=== PATIENT | female | born 1980 | race Caucasian/White ===

== ENCOUNTER 2017-03-21 12:07 | Emergency (ER) | payer BC ==
[2017-03-21 12:30] VITALS: BP 154/81
--- NOTE | 2017-03-21 12:42 | EDM.PDOC ---
ED HPI GI/ABDOMINAL - General Chief Complaint: Abdominal Pain Stated Complaint: LOWER ABDOMINAL PAIN Time Seen by Provider: 03/21/17 12:41 - History of Present Illness INITIAL COMMENTS - FREE TEXT/NARRATIVE: 36-year-old female presents emergency room with abdominal pain. This pain started early this morning progressively getting worse it is not associated with nausea vomiting. She cannot recall any activities he didn't make it worse however she does better with her hips flexed laying on her side in the position. The pain is mostly in the right lower caught it she describes it as going from her ovary to her bladder. It did not start out in her flank. She was seen for pain not this severe at the end of January this year. This pain did get better on its own the possibility of a kidney stone was brought up. The patient has had prior cholecystectomy she still has her appendix. - Related Data Allergies/ADRs: Allergies Allergy/AdvReac Type Severity Reaction Status Date / Time codeine Allergy Intermediate Burning Verified 03/21/17 12:26 latex Allergy Intermediate Blisters Verified 03/21/17 12:26 Home Meds: Home Meds Amitriptyline [Elavil] 50 mg PO BEDTIME PRN 08/08/16 [History] Ibuprofen [Advil] 600 mg PO Q6H PRN 10/09/16 [History] Ondansetron [Zofran ODT] 4 mg PO Q6H PRN #12 tab.dis 12/08/16 [Rx] Escitalopram [Lexapro] 10 mg PO DAILY 01/24/17 [History] LORazepam 0.5 mg PO ASDIRECTED PRN 01/24/17 [History] Hydrocodone/Acetaminophen [[place] 5-325 Tablet] 1 - 2 each PO Q6H PRN #15 tablet 03/21/17 [Rx] Ondansetron [Zofran ODT] 4 mg PO Q6H PRN #6 tab.dis 03/21/17 [Rx] Past Medical History - Past Health History Medical/Surgical History: Denies Medical/Surgical History HEENT History: Reports: Impaired vision Other HEENT History: wears eyeglasses Other Gastrointestinal History: diagnostic lap Genitourinary History: Reports: None Other OB/BYN History: pt states "not " Musculoskeletal History: Reports: Fracture Neurological History: Reports: Migraines Psychiatric History: Reports: Anxiety, Depression Hematologic History: Reports: Anemia - Past Surgical History GI Surgical History: Reports: Cholecystectomy Female Surgical History: Reports: section, Endometrial ablation, Tubal ligation Social & Family History - Tobacco Use Smoking Status *Q: Current Every Day Smoker Years of Tobacco use: 20 Packs/Tins Daily: 0.7 Used Tobacco, but Quit: No Second Hand Smoke Exposure: No - Caffeine Use Caffeine Use: Reports: Coffee - Alcohol Use Days Per Week of Alcohol Use: 5 Number of Drinks Per Day: 2 Total Drinks Per Week: 10 - Recreational Drug Use Recreational Drug Use: No ED ROS GENERAL - Review of Systems Review Of Systems: See Below Constitutional: Reports: no symptoms HEENT: Reports: No symptoms Respiratory: Reports: No Symptoms Cardiovascular: Reports: No symptoms GI/Abdominal: Reports: Abdominal pain. Denies: Constipation, Diarrhea : Reports: no symptoms Neurological: Reports: No Symptoms ED EXAM, GI/ABD - Physical Exam Exam: See Below Exam Limited By: No limitations General Appearance: alert, moderate distress (From the pain) Head: atraumatic, normocephalic Neck: normal inspection, supple, non-tender, full range of motion Respiratory/Chest: no respiratory distress, lungs clear, normal breath sounds Cardiovascular: regular rate, rhythm, no edema, no murmur GI/Abdominal: normal bowel sounds, soft, other (Vision significant right lower quadrant discomfort not worsened with palpation no rebound or guarding associated with this) Back Exam: normal inspection. No: CVA tenderness (L), CVA tenderness (R), paraspinal tenderness, vertebral tenderness Extremities: normal inspection, no pedal edema Course - Vital Signs Last Recorded V/S: Last Vital Signs Temp 36.7 C 03/21/17 12:23 Pulse 89 03/21/17 12:23 Resp 20 03/21/17 12:23 BP 154/81 H 03/21/17 12:23 Pulse Ox 97 03/21/17 12:23 - Orders/Labs/Meds Labs: Laboratory Tests 03/21/17 03/21/17 03/21/17 Range/Units 13:00 13:00 13:15 WBC 10.83 H (3.98-10.04) K/mm3 RBC 4.53 (3.98-5.22) M/mm3 Hgb 14.0 (11.2-15.7) gm/L Hct 40.3 (34.1-44.9) % MCV 89.0 (79.4-94.8) fl MCH 30.9 (25.6-32.2) pg MCHC 34.7 (32.2-35.5) g/dl RDW Std Deviation 40.1 (36.4-46.3) fL Plt Count 273 (182-369) K/mm3 MPV 10.6 (9.4-12.3) fl Neutrophils % (Manual) 70 H (40-60) % Band Neutrophils % 1 (0-10) % Lymphocytes % (Manual) 21 (20-40) % Atypical Lymphs % 0 % Monocytes % (Manual) 8 (2-10) % Eosinophils % (Manual) 0 L (0.7-5.8) % Basophils % (Manual) 0 L (0.1-1.2) Platelet Estimate Adequate RBC Morph Comment Normal Sodium (136-145) mEq/L Potassium (3.5-5.1) mEq/L Chloride (98-107) mEq/L Carbon Dioxide (21-32) mEq/L Anion Gap (5-15) BUN (7-18) mg/dL Creatinine (0.55-1.02) mg/dL Est Cr Clr Drug Dosing mL/min Estimated GFR (MDRD) (>60) mL/min BUN/Creatinine Ratio (14-18) Glucose (74-106) mg/dL Calcium (8.5-10.1) mg/dL Total Bilirubin (0.2-1.0) mg/dL AST (15-37) U/L ALT (14-59) U/L Alkaline Phosphatase (46-116) U/L Total Protein (6.4-8.2) g/dl Albumin (3.4-5.0) g/dl Globulin gm/dL Albumin/Globulin Ratio (1-2) Urine Color Yellow (Yellow) Urine Appearance Clear (Clear) Urine pH 7.0 (5.0-8.0) Ur Specific [place] 1.025 (1.005-1.030) Urine Protein Negative (Negative) Urine Glucose (UA) Negative (Negative) Urine Ketones Negative (Negative) Urine Occult Blood Negative (Negative) Urine Nitrite Negative (Negative) Urine Bilirubin Negative (Negative) Urine Urobilinogen 0.2 (0.2-1.0) Ur Leukocyte Esterase Negative (Negative) Urine RBC 0-5 (0-5) /hpf Urine WBC 0-5 (0-5) /hpf Ur Epithelial Cells Not Reportable Ur Squamous Epith Cells 5-10 H (0-5) /hpf Urine Bacteria Few (FEW) /hpf Urine Mucus Few (FEW) /hpf Urine HCG, Qual Negative (NEGATIVE) 03/21/17 Range/Units 13:43 WBC (3.98-10.04) K/mm3 RBC (3.98-5.22) M/mm3 Hgb (11.2-15.7) gm/L Hct (34.1-44.9) % MCV (79.4-94.8) fl MCH (25.6-32.2) pg MCHC (32.2-35.5) g/dl RDW Std Deviation (36.4-46.3) fL Plt Count (182-369) K/mm3 MPV (9.4-12.3) fl Neutrophils % (Manual) (40-60) % Band Neutrophils % (0-10) % Lymphocytes % (Manual) (20-40) % Atypical Lymphs % % Monocytes % (Manual) (2-10) % Eosinophils % (Manual) (0.7-5.8) % Basophils % (Manual) (0.1-1.2) Platelet Estimate RBC Morph Comment Sodium 139 (136-145) mEq/L Potassium 3.6 (3.5-5.1) mEq/L Chloride 106 (98-107) mEq/L Carbon Dioxide 25 (21-32) mEq/L Anion Gap 11.6 (5-15) BUN 10 (7-18) mg/dL Creatinine 0.7 (0.55-1.02) mg/dL Est Cr Clr Drug Dosing 99.01 mL/min Estimated GFR (MDRD) > 60 (>60) mL/min BUN/Creatinine Ratio 14.3 (14-18) Glucose 101 (74-106) mg/dL Calcium 8.6 (8.5-10.1) mg/dL Total Bilirubin 0.3 (0.2-1.0) mg/dL AST 14 L (15-37) U/L ALT 19 (14-59) U/L Alkaline Phosphatase 55 (46-116) U/L Total Protein 6.6 (6.4-8.2) g/dl Albumin 3.6 (3.4-5.0) g/dl Globulin 3.0 gm/dL Albumin/Globulin Ratio 1.2 (1-2) Urine Color (Yellow) Urine Appearance (Clear) Urine pH (5.0-8.0) Ur Specific [place] (1.005-1.030) Urine Protein (Negative) Urine Glucose (UA) (Negative) Urine Ketones (Negative) Urine Occult Blood (Negative) Urine Nitrite (Negative) Urine Bilirubin (Negative) Urine Urobilinogen (0.2-1.0) Ur Leukocyte Esterase (Negative) Urine RBC (0-5) /hpf Urine WBC (0-5) /hpf Ur Epithelial Cells Ur Squamous Epith Cells (0-5) /hpf Urine Bacteria (FEW) /hpf Urine Mucus (FEW) /hpf Urine HCG, Qual (NEGATIVE) Meds: Medications Discontinued Medications Generic Name Dose Route Start Last Admin Trade Name Freq PRN Reason Stop Dose Admin Hydrocodone Bitart/Acetaminophen 2 tab 03/21/17 15:48 03/21/17 16:15 [place] 325-5 Mg PO 03/21/17 15:49 2 tab ONETIME ONE Administration Fentanyl 100 mcg 03/21/17 12:55 Sublimaze IVPUSH 03/21/17 12:56 ONETIME ONE Fentanyl 50 mcg 03/21/17 12:57 03/21/17 13:12 Sublimaze IVPUSH 03/21/17 12:58 50 mcg ONETIME ONE Administration Hydromorphone HCl 0.5 mg 03/21/17 13:44 03/21/17 14:05 Dilaudid IVPUSH 03/21/17 13:45 0.5 mg ONETIME ONE Administration Lactated Ringer's 1,000 mls @ 999 mls/hr 03/21/17 12:55 03/21/17 13:11 Ringers, Lactated IV 03/21/17 13:55 999 mls/hr .BOLUS ONE Administration Ondansetron HCl 4 mg 03/21/17 12:57 03/21/17 13:11 Zofran IVPUSH 03/21/17 12:58 4 mg ONETIME ONE Administration - Re-Assessments/Exams Free Text/Narrative Re-Assessment/Exam: 03/21/17 13:47 Patient had brief relief from fentanyl we'll give a small dose of Dilaudid. Urinalysis is not suggestive hCG negative. CBC shows a slightly elevated white count. Chemistry still pending repeat exam unchanged we will check a CT stone protocol. 03/21/17 16:52 Laboratory evaluation entirely nondiagnostic CT is nondiagnostic for acute kidney stones the appendix was visualized no acute changes noted no other significant abnormalities noted. 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 This may warrant outpatient evaluation for HLA-B27 conditions. Departure - Departure Time of Disposition: 16:58 Disposition: Home, Self-Care 01 Clinical Impression: Abdominal pain of unknown cause Prescriptions: Hydrocodone/Acetaminophen [[place] 5-325 Tablet] 1 - 2 each PO Q6H PRN #15 tablet PRN Reason: Abdominal Pain Ondansetron [Zofran ODT] 4 mg PO Q6H PRN #6 tab.dis PRN Reason: Nausea/Vomiting Forms: ED Department Discharge Additional Instructions: Return to the emergency room with any questions or problems. Return in 12-24 hours if not improving, sooner if getting worse. Because your abdominal pain cannot clearly be identified. It is recommended that you obtain a gynecologic consultation to see if this could be contributing to her symptoms. Also consider further evaluation for potential rheumatologic conditions. I think this is unlikely but if no answers can be found it would be worth looking into.. You have been started on [place] this is a pain pill take one or 2 every 6 hours as needed for pain do not drive within 12 hours of using this medication were do not return to work within 12 hours using this medication. You been started on Zofran this is for nausea use as needed. Clear liquid diet for the next 12 hours then slowly advance as tolerated.
[2017-03-21] MEDS ORDERED: Lactated Ringers 1,000 ML IV ONE (12:55)
[2017-03-21] MEDS ORDERED: fentaNYL 100 MCG/2 ML SDV IVPUSH ONE ×2 (12:55→12:57)
[2017-03-21] MEDS ORDERED: Ondansetron 4 MG/2 ML SDV IVPUSH ONE (12:57)
[2017-03-21] MEDS ORDERED: HYDROmorphone 0.5 MG/0.5 ML Syringe IVPUSH ONE (13:44)
--- NOTE | 2017-03-21 14:47 | CT ---
CT abdomen and pelvis Technique: Multiple axial sections were obtained from above the dome of the diaphragm inferiorly through the pubic symphysis. Intravenous contrast was not utilized. Study has been performed as a ureteral stone protocol. Comparison: Previous CT abdomen and pelvis exam of 03/06/14. Findings: Right and left kidneys show no abnormal calcifications. No ureteral dilatation or ureteral stone is seen. Small portion of the visualized lung bases shows nothing acute. Liver has an unremarkable noncontrast appearance. Spleen appears within normal limits. Surgical clips are seen from prior cholecystectomy. Adrenal glands show no nodule. Pancreas is within normal limits. Aorta shows no aneurysmal dilatation. Appendix is seen which appears normal. No mesenteric abnormalities are seen. No pelvic mass or adenopathy is seen. Calcifications within the pelvis are felt compatible with phleboliths. No free fluid or inflammatory change is noted. No bowel dilatation is seen. Bone window settings were reviewed which appears within normal limits for the patient's age. Incidental note of osteitis condense ilii. This finding is stable from previous study. Impression: 1. No renal calculi, ureteral dilatation or ureteral stone is seen. 2. Other incidental findings. Nothing acute is identified on noncontrast CT study of the abdomen and pelvis. Diagnostic code #2
[2017-03-21] MEDS ORDERED: Acetaminophen/HYDROcodone 325-5 MG Tab PO ONE (15:48)
== END 2017-03-21 17:12 | disposition home or self-care (01) ==
LOC: JD.ED 12:07
DX: R10.31 Right lower quadrant pain (principal); F17.210 Nicotine dependence, cigarettes, uncomplicated; F41.9 Anxiety disorder, unspecified; F32.9 Major depressive disorder, single episode, unspecified; Z90.49 Acquired absence of other specified parts of digestive tract; Z79.899 Other long term (current) drug therapy; Z88.6 Allergy status to analgesic agent
CPT/HCPCS: 36415; 74176; 80053; 81001; 81025; 85025; 96361; 96374; 96375; 99284; A9270; J1170; J2405; J3010; J7120

== ENCOUNTER 2017-06-04 03:19 | Emergency (ER) | payer BC ==
[2017-06-04 03:27] VITALS: BP 147/97
--- NOTE | 2017-06-04 03:36 | EDM.PDOC ---
ED HPI GENERAL MEDICAL PROBLEM - General Chief Complaint: Headache Stated Complaint: HEADACHE Time Seen by Provider: 06/04/17 03:33 - History of Present Illness INITIAL COMMENTS - FREE TEXT/NARRATIVE: 36-year-old female presents emergency room with a migraine headache. This headache started this evening and awoke her up. Patient was doing fine yesterday. Pain seems to favor her left side she has associated photophobia with this and nausea and vomiting. This reminds her of her typical headaches. Patient tried some ibuprofen at home but threw it up within 10 minutes. Patient denies any fevers or chills it is not the worst headache of her life. Patient has gone a while without having a migraine probably 5 or 6 months. Patient denies any abdominal pain. She has no areas of numbness or weakness no significant dizziness. Treatments DUTY MANAGER: Reports: Oxygen Headache Pain Score (Numeric/FACES): 10 - Related Data Allergies Allergy/AdvReac Type Severity Reaction Status Date / Time codeine Allergy Intermediate Burning Verified 06/04/17 03:57 latex Allergy Intermediate Blisters Verified 06/04/17 03:57 Home Meds: Home Meds Amitriptyline [Elavil] 50 mg PO BEDTIME PRN 08/08/16 [History] Ibuprofen [Advil] 600 mg PO Q6H PRN 10/09/16 [History] Ondansetron [Zofran ODT] 4 mg PO Q6H PRN #12 tab.dis 12/08/16 [Rx] Escitalopram [Lexapro] 10 mg PO DAILY 01/24/17 [History] LORazepam 0.5 mg PO ASDIRECTED PRN 01/24/17 [History] Hydrocodone/Acetaminophen [[place] 5-325 Tablet] 1 - 2 each PO Q6H PRN #15 tablet 03/21/17 [Rx] Ondansetron [Zofran ODT] 4 mg PO Q6H PRN #6 tab.dis 03/21/17 [Rx] Past Medical History - Past Health History Medical/Surgical History: Denies Medical/Surgical History HEENT History: Reports: Impaired Vision Other HEENT History: wears eyeglasses Other Gastrointestinal History: diagnostic lap Genitourinary History: Reports: None Other OB/BYN History: pt states "not " Musculoskeletal History: Reports: Fracture Neurological History: Reports: Migraines Psychiatric History: Reports: Anxiety, Depression Hematologic History: Reports: Anemia - Past Surgical History GI Surgical History: Reports: Cholecystectomy Female Surgical History: Reports: Section, Endometrial Ablation, Tubal Ligation Social & Family History - Family History Family Medical History: Noncontributory - Tobacco Use Smoking Status *Q: Current Every Day Smoker Years of Tobacco use: 20 Packs/Tins Daily: 1 Used Tobacco, but Quit: No Second Hand Smoke Exposure: No - Caffeine Use Caffeine Use: Reports: None - Alcohol Use Days Per Week of Alcohol Use: 5 Number of Drinks Per Day: 2 Total Drinks Per Week: 10 - Recreational Drug Use Recreational Drug Use: No ED ROS GENERAL - Review of Systems Review Of Systems: See Below Constitutional: Reports: No Symptoms HEENT: Reports: No Symptoms Respiratory: Reports: No Symptoms Cardiovascular: Reports: No Symptoms GI/Abdominal: Reports: Nausea, Vomiting. Denies: Abdominal Pain, Constipation, Diarrhea : Reports: No Symptoms Neurological: Reports: Headache. Denies: Dizziness, Seizure, Syncope, Tremors, Trouble Speaking, Weakness, Gait Disturbance - Physical Exam Exam: See Below Exam Limited By: No Limitations General Appearance: Alert, No Apparent Distress Eye Exam: Bilateral Eye: EOMI, Normal Inspection, PERRL Ears: Normal External Exam, Normal Canal, Hearing Grossly Normal, Normal TMs Nose: Normal Inspection, Normal Mucosa, No Blood Neck: Normal Inspection, Supple, Non-Tender, Full Range of Motion. No: Lymphadenopathy (L), Lymphadenopathy (R) Respiratory/Chest: No Respiratory Distress, Lungs Clear, Normal Breath Sounds Cardiovascular: Regular Rate, Rhythm, No Edema, No Murmur GI/Abdominal: Normal Bowel Sounds, Soft, Non-Tender Neuro Exam (Abbreviated): Other (Cranial nerves II through XII grossly intact all muscle groups the upper and lower extremities recall appropriate bilaterally. Cerebellar testing is within normal limits deep tendon reflexes the brachial radialis are equal and appropriate bilaterally) Course - Vital Signs Last Recorded V/S: Last Vital Signs Temp 36.8 C 06/04/17 03:23 Pulse 93 06/04/17 03:23 Resp 19 06/04/17 03:23 BP 147/97 H 06/04/17 03:23 Pulse Ox 95 06/04/17 03:23 - Orders/Labs/Meds Orders: Active Orders 24 hr Category Date Time Status Lactated Ringers [Ringers, Lactated] 1,000 ml Med 06/04/17 03:49 Active IV .BOLUS Medication Orders Lactated Ringer's (Ringers, Lactated) 1,000 mls @ 999 mls/hr IV .BOLUS ONE Stop: 06/04/17 04:49 Last Admin: 06/04/17 03:55 Dose: 999 mls/hr Meds: Medications Generic Name Dose Route Start Last Admin Trade Name Freq PRN Reason Stop Dose Admin Lactated Ringer's 1,000 mls @ 999 mls/hr 06/04/17 03:49 06/04/17 03:55 Ringers, Lactated IV 06/04/17 04:49 999 mls/hr .BOLUS ONE Administration Discontinued Medications Generic Name Dose Route Start Last Admin Trade Name Freq PRN Reason Stop Dose Admin Diphenhydramine HCl 50 mg 06/04/17 03:49 06/04/17 03:58 Benadryl IVPUSH 06/04/17 03:50 50 mg ONETIME ONE Administration Ondansetron HCl 4 mg 06/04/17 03:49 06/04/17 03:56 Zofran IVPUSH 06/04/17 03:50 4 mg ONETIME ONE Administration - Re-Assessments/Exams Free Text/Narrative Re-Assessment/Exam: 06/04/17 04:45 Nausea and vomiting much better headache minimal improvement we'll try some Toradol. 06/04/17 05:31 Patient is doing much better would like to go home and get some rest. Departure - Departure Time of Disposition: 05:32 Disposition: Home, Self-Care 01 Clinical Impression: Migraine headache Qualifiers: Migraine type: unspecified Status migrainosus presence: without status migrainosus Intractability: not intractable Qualified Code(s): G43.909 - Migraine, unspecified, not intractable, without status migrainosus - Discharge Information Forms: ED Department Discharge Additional Instructions: Return to the emergency room with any questions or problems or worsening symptoms. Go home and get some rest. Sleeping these off is the best thing at this point. - My Orders Last 24 Hours: My Active Orders 06/04/17 03:49 Lactated Ringers [Ringers, Lactated] 1,000 ml IV .BOLUS - Assessment/Plan Last 24 Hours: My Active Orders 06/04/17 03:49 Lactated Ringers [Ringers, Lactated] 1,000 ml IV .BOLUS
[2017-06-04] MEDS ORDERED: Lactated Ringers 1,000 ML IV ONE (03:49)
[2017-06-04] MEDS ORDERED: diphenhydrAMINE 50 MG/ML SDV IVPUSH ONE (03:49)
[2017-06-04] MEDS ORDERED: Ondansetron 4 MG/2 ML SDV IVPUSH ONE (03:49)
[2017-06-04] MEDS ORDERED: Ketorolac 30 MG/ML SDV IVPUSH ONE (04:45)
== END 2017-06-04 05:43 | disposition home or self-care (01) ==
LOC: JD.ED 03:19
DX: G43.909 Migraine, unspecified, not intractable, without status migrainosus (principal); F41.9 Anxiety disorder, unspecified; F32.9 Major depressive disorder, single episode, unspecified; Z86.2 Personal history of diseases of the blood and blood-forming organs and certain disorders involving the immune mechanism; Z90.49 Acquired absence of other specified parts of digestive tract; Z98.51 Tubal ligation status; Z79.899 Other long term (current) drug therapy; Z88.5 Allergy status to narcotic agent; Z91.040 Latex allergy status
CPT/HCPCS: 96361; 96374; 96375; 99283; J1200; J1885; J2405; J7120

== ENCOUNTER 2017-10-10 05:41 | Emergency (ER) | payer BC ==
[2017-10-10 05:51] VITALS: BP 139/102
[2017-10-10] MEDS ORDERED: Haloperidol Lactate 5 MG/ML SDV IM ONE ×3 (06:09→07:31)
[2017-10-10] MEDS ORDERED: diphenhydrAMINE 50 MG/ML SDV IVPUSH ONE (06:09)
[2017-10-10] MEDS ORDERED: Sodium Chloride 0.9% 1,000 ML IV ONE (06:09)
[2017-10-10] MEDS ORDERED: Ondansetron 4 MG/2 ML SDV IVPUSH ONE (06:09)
--- NOTE | 2017-10-10 06:29 | EDM.PDOC ---
ED HPI GENERAL MEDICAL PROBLEM - General Chief Complaint: Headache Stated Complaint: SOB HEADACHE VOMITING Time Seen by Provider: 10/10/17 05:53 Source of Information: Reports: Patient, RN Notes Reviewed, Significant Other ( Boyfriend) History Limitations: Reports: No Limitations - History of Present Illness INITIAL COMMENTS - FREE TEXT/NARRATIVE: The patient states that she was woken with a headache around 03:00 this morning. The pain is felt in the center posterior and top of her head. It is sharp in character. She has had both nausea and emesis, and the vomiting has made her feel short of breath. She denies visual changes. She reports photophobia, but denies phonophobia. No neurologic symptoms, such as tingling, numbness, or weakness. The patient reports prior similar headaches about 2-3 times per month, however, she is not on any prophylactic or abortive migraine medications, because she states that they do not work. She states that she was diagnosed with migraines per her PCP, and she states that she saw a Neurologist about 10 years ago, but does not confirm that the Neurologist felt that her headaches were migrainous. She does not recall when the last imaging study of her head was, although our medical records indicate that she had a CT scan of the head on 10/08/2014. The patient's PCP is Diana Larkin. Occipital Headache Pain Score (Numeric/FACES): 8 - Related Data Allergies Allergy/AdvReac Type Severity Reaction Status Date / Time codeine Allergy Intermediate Burning Verified 10/10/17 05:51 latex Allergy Intermediate Blisters Verified 10/10/17 05:51 Home Meds: Home Meds Amitriptyline [Elavil] 50 mg PO BEDTIME PRN 08/08/16 [History] Ibuprofen [Advil] 600 mg PO Q6H PRN 10/09/16 [History] LORazepam 0.5 mg PO ASDIRECTED PRN 01/24/17 [History] Cyclobenzaprine [Flexeril] 10 mg PO ASDIRECTED PRN 10/10/17 [History] Past Medical History HEENT History: Reports: Impaired Vision Other HEENT History: wears eyeglasses Musculoskeletal History: Reports: Back Pain, Chronic Neurological History: Reports: Headaches, Chronic Psychiatric History: Reports: Anxiety, Depression Hematologic History: Reports: Anemia - Past Surgical History HEENT Surgical History: Reports: Oral Surgery (M[place] teeth extraction) GI Surgical History: Reports: Cholecystectomy, Other (See Below) (Exploratory laparoscopy) Female Surgical History: Reports: Section (x 2), Endometrial Ablation, Oophorectomy (left), Tubal Ligation, Other (See Below) (Bilateral salpingectomy) Social & Family History - Family History Family Medical History: Noncontributory - Tobacco Use Smoking Status *Q: Current Every Day Smoker Years of Tobacco use: 21 Packs/Tins Daily: 1 Packs/Tins Daily Comment: Down from 2 ppd - Caffeine Use Caffeine Use: Reports: Coffee, Soda - Alcohol Use Alcohol Use History: Yes Days Per Week of Alcohol Use: 5 Number of Drinks Per Day: 2 Total Drinks Per Week: 10 Alcohol Use Frequency: Socially - Recreational Drug Use Recreational Drug Use: No - Living Situation & Occupation Living situation: Reports: Single, with Significant Other (Boyfriend), with Family (Daughter) Occupation: Employed ([employer]) ED ROS GENERAL - Review of Systems Review Of Systems: See Below Constitutional: Reports: No Symptoms HEENT: Reports: No Symptoms Respiratory: Reports: No Symptoms Cardiovascular: Reports: No Symptoms Endocrine: Reports: No Symptoms GI/Abdominal: Reports: No Symptoms : Reports: No Symptoms Musculoskeletal: Reports: No Symptoms Skin: Reports: No Symptoms Neurological: Reports: No Symptoms Psychiatric: Reports: No Symptoms Hematologic/Lymphatic: Reports: No Symptoms Immunologic: Reports: No Symptoms - Physical Exam Exam: See Below Exam Limited By: No Limitations General Appearance: Alert, WD/WN, Mild Distress (Appears uncomfortable) Eye Exam: Bilateral Eye: EOMI, Normal Inspection, PERRL Ears: Normal External Exam, Hearing Grossly Normal Nose: Normal Inspection, No Blood Throat/Mouth: Normal Inspection, Normal Lips, Normal Voice, No Airway Compromise Head Exam: Atraumatic, Normocephalic Neck: Normal Inspection, Supple, Full Range of Motion Respiratory/Chest: No Respiratory Distress, Lungs Clear, Normal Breath Sounds, No Accessory Muscle Use Cardiovascular: Normal Peripheral Pulses, Regular Rate, Rhythm, No Gallop, No JVD, No Murmur, No Rub GI/Abdominal: Normal Bowel Sounds, Soft, Non-Tender, No Organomegaly, No Distention, No Abnormal Bruit, No Mass (Female) Exam: Deferred Rectal (Female) Exam: Deferred Neuro Exam (Abbreviated): Alert, Oriented, CN II-XII Intact, Normal Cognition, No Motor/Sensory Deficits Back Exam: Normal Inspection, Full Range of Motion, NT Extremities: Normal Inspection, Normal Range of Motion, No Pedal Edema, Normal Capillary Refill Psychiatric: Anxious, Tearful Skin Exam: Warm, Dry, Intact, Normal Color, No Rash Course - Vital Signs Last Recorded V/S: Last Vital Signs Temp 36.5 C 10/10/17 05:45 Pulse 84 10/10/17 05:45 Resp 20 10/10/17 05:45 BP 139/102 H 10/10/17 05:45 Pulse Ox 99 10/10/17 05:45 - Orders/Labs/Meds Meds: Medications Discontinued Medications Generic Name Dose Route Start Last Admin Trade Name Sandroq PRN Reason Stop Dose Admin Diphenhydramine HCl 50 mg 10/10/17 06:09 10/10/17 06:30 Benadryl IVPUSH 10/10/17 06:10 50 mg ONETIME ONE Administration Haloperidol Lactate 5 mg 10/10/17 06:09 10/10/17 06:40 Haldol IM 10/10/17 06:10 Not Given ONETIME ONE Haloperidol Lactate 5 mg 10/10/17 07:31 10/10/17 07:36 Haldol IM 10/10/17 07:32 5 mg ONETIME ONE Administration Haloperidol Lactate 5 mg 10/10/17 07:31 10/10/17 07:37 Haldol IM 10/10/17 07:32 Not Given ONETIME ONE Sodium Chloride 1,000 mls @ 999 mls/hr 10/10/17 06:09 10/10/17 06:27 Normal Saline IV 10/10/17 07:09 999 mls/hr ONETIME ONE Administration Ketorolac Tromethamine 30 mg 10/10/17 06:35 10/10/17 06:40 Toradol IVPUSH 10/10/17 06:36 30 mg ONETIME STA Administration Ondansetron HCl 4 mg 10/10/17 06:09 10/10/17 06:28 Zofran IVPUSH 10/10/17 06:10 4 mg ONETIME ONE Administration - Re-Assessments/Exams Free Text/Narrative Re-Assessment/Exam: 10/10/17 06:36 Notified by nurse Karin that the patient refused the Haldol, stating that when she has had it in the past, it made her feel like scratching her eyes out. I see from prior medical records that the patient has received Toradol in the past with positive results. I have therefore ordered 30 mg IV Toradol. 10/10/17 07:25 CT of the head without contrast is read by Dr. Mercado as: 1. No abnormality is identified on noncontrast head CT exam. 10/10/17 07:31 The patient states that the Toradol has not helped, and she is now willing to try Haldol. I have reordered it. 10/10/17 08:06 The patient states that she has slight improvement in her headache following IM Haldol. She feels well enough to go home and rest for the remainder of the day. It is unclear if the patient's headache is migrainous or not. Departure - Departure Time of Disposition: 08:06 Disposition: Home, Self-Care 01 Condition: Good Clinical Impression: Headache Qualifiers: Headache type: unspecified Headache chronicity pattern: acute headache Intractability: not intractable Qualified Code(s): R51 - Headache Nausea & vomiting Qualifiers: Vomiting type: unspecified Vomiting Intractability: non-intractable Qualified Code(s): R11.2 - Nausea with vomiting, unspecified - Discharge Information Referrals: Marlen Larkin INSTRUMENT SPECIALIST [Primary Care Provider] - Forms: ED Department Discharge Additional Instructions: You were seen in the emergency room for a headache, nausea, and vomiting. Workup in the ER included a CT scan of her head, which returned as normal. You received some improvement in your symptoms following IM Haldol, a medicine that treats of migraines. It is unclear if your headache was a migraine, versus a tension-type headache. We recommend you get plenty of rest in a dark, quiet place today. Stay well hydrated. Follow-up with your PCP, Diana Larkin, as needed. If any other problems, please do not hesitate to return to the ER.
[2017-10-10] MEDS ORDERED: Ketorolac 30 MG/ML SDV IVPUSH STA (06:35)
--- NOTE | 2017-10-10 07:19 | CT ---
Head CT Technique: Multiple axial sections were obtained through the brain. Intravenous contrast was not utilized. Comparison: Prior head CT exam of 10/08/14. Findings: Ventricles along with basal cisterns and sulci over the convexities are within normal limits. No abnormal parenchymal densities are seen. No evidence of intracranial hemorrhage. No midline shift or mass effect is seen. Bone window settings were reviewed which shows no acute calvarial abnormality. Visualized sinuses are clear. Impression: 1. No abnormality is identified on noncontrast head CT exam. Diagnostic code #1
== END 2017-10-10 08:32 | disposition home or self-care (01) ==
LOC: JD.ED 05:41
DX: R51 Headache (principal); R11.2 Nausea with vomiting, unspecified; F32.9 Major depressive disorder, single episode, unspecified; F17.210 Nicotine dependence, cigarettes, uncomplicated; Z86.2 Personal history of diseases of the blood and blood-forming organs and certain disorders involving the immune mechanism; Z88.5 Allergy status to narcotic agent; Z91.040 Latex allergy status
CPT/HCPCS: 70450; 96361; 96372; 96374; 96375; 99284; J1200; J1630; J1885; J2405; J7040

== ENCOUNTER 2017-11-05 08:47 | Emergency (ER) | payer BC ==
[2017-11-05 08:58] VITALS: BP 162/100
[2017-11-05] MEDS ORDERED: diphenhydrAMINE 50 MG/ML SDV IVPUSH ONE (09:28)
[2017-11-05] MEDS ORDERED: Sodium Chloride 0.9% 10 ML Syringe FLUSH PRN (09:28)
[2017-11-05] MEDS ORDERED: Prochlorperazine 10 MG/2 ML SDV IVPUSH ONE (09:28)
--- NOTE | 2017-11-05 10:02 | CT ---
Head CT Technique: Multiple axial sections through the brain were obtained. Intravenous contrast was not utilized. Comparison: Prior head CT exam of 10/10/17. Findings: Ventricles along with basal cisterns and sulci over the convexities appear within normal limits for the patient's age. No abnormal parenchymal densities are seen. No evidence of intracranial hemorrhage. No midline shift or mass effect is seen. Bone window settings were reviewed which shows the visualized sinuses to appear clear. No acute calvarial abnormality is seen. Impression: 1. No abnormality is appreciated on noncontrast head CT exam. No significant change is seen from prior head CT exam. Diagnostic code #1
[2017-11-05] MEDS ORDERED: Ketorolac 30 MG/ML SDV IVPUSH ONE (10:21)
--- NOTE | 2017-11-05 11:36 | MR ---
Addendum: In the technique description the word "minute" is present. This represents a voice recognition error and should be replaced with MIP. --- Addendum1 above dictated on [11/15/2017 12:48] by [Jeffrey Mercado Hilton J.] --- --- Addendum1 above signed on [11/15/2017 12:50] by [Jeffrey Mercado Hilton J.] --- --- Original report below dictated on [11/05/2017 11:32] by [Jeffrey Mercado Hilton J.] --- --- Original report below signed on [11/05/2017 11:33] by [Jeffrey Mercado Hilton J.] --- MR angiogram Technique: MR angiogram study was obtained through the [place] [facility] [place]. Multiple minute images were obtained in multiple projections. Comparison: No prior MRI angiogram study is available. Findings: Distal vertebral arteries and basilar artery are unremarkable. Posterior cerebral arteries appear within normal limits. Distal internal carotid arteries are within normal limits. Normal flow into the middle and anterior cerebral arteries are seen. No aneurysm is appreciated. No focal stenosis is seen. Impression: 1. No abnormality is identified on MR angiogram study centered to the [place]. Diagnostic code #1 --- Addendum1 signed ---
--- NOTE | 2017-11-05 12:20 | EDM.PDOC ---
ED HPI GENERAL MEDICAL PROBLEM - General Chief Complaint: Neck Problem Stated Complaint: NECK PAIN Time Seen by Provider: 11/05/17 09:16 Source of Information: Reports: Patient History Limitations: Reports: No Limitations - History of Present Illness INITIAL COMMENTS - FREE TEXT/NARRATIVE: The presents with right neck pain and headache. This started 3 nights ago when she was watching TV. She has tried ibuprofen but it has not helped. She has no numbness, weakness, blurred vision or double vision. She has a history of migraines but it has never been this bad. She has no vomiting with it. Onset: Gradual Duration: Day(s): (3) Location: Reports: Head, Neck Quality: Reports: Sharp Severity: Severe Improves with: Reports: None Worsens with: Reports: None Associated Symptoms: Reports: Headaches. Denies: Chest Pain, Cough, Fever/ Chills, Nausea/Vomiting, Shortness of Breath Treatments DROP MACHINE OPERATOR: Reports: NSAIDS, Other (see below) Other Treatments DROP MACHINE OPERATOR: heat Right Neck Pain Score (Numeric/FACES): 8 - Related Data Allergies Allergy/AdvReac Type Severity Reaction Status Date / Time codeine Allergy Intermediate Burning Verified 11/05/17 09:06 latex Allergy Intermediate Blisters Verified 11/05/17 09:06 Home Meds: Home Meds Amitriptyline [Elavil] 50 mg PO BEDTIME PRN 08/08/16 [History] Ibuprofen [Advil] 600 mg PO Q6H PRN 10/09/16 [History] LORazepam 0.5 mg PO ASDIRECTED PRN 01/24/17 [History] Cyclobenzaprine [Flexeril] 10 mg PO TID PRN #20 tablet 11/05/17 [Rx] Hydrocodone/Acetaminophen [Hydrocodon-Acetaminophen 5-325] 1 - 2 each PO Q6HR PRN #10 tablet 11/05/17 [Rx] Past Medical History HEENT History: Reports: Impaired Vision Other HEENT History: wears eyeglasses Musculoskeletal History: Reports: Back Pain, Chronic Neurological History: Reports: Headaches, Chronic Psychiatric History: Reports: Anxiety, Depression Hematologic History: Reports: Anemia - Past Surgical History HEENT Surgical History: Reports: Oral Surgery Social & Family History - Family History Family Medical History: Noncontributory - Tobacco Use Smoking Status *Q: Current Every Day Smoker Years of Tobacco use: 20 Packs/Tins Daily: 0.5 Used Tobacco, but Quit: No Second Hand Smoke Exposure: No - Caffeine Use Caffeine Use: Reports: Coffee - Alcohol Use Days Per Week of Alcohol Use: 5 Number of Drinks Per Day: 2 Total Drinks Per Week: 10 - Recreational Drug Use Recreational Drug Use: No - Living Situation & Occupation Living situation: Reports: Single, with Significant Other (Boyfriend), with Family (Daughter) Occupation: Employed ([employer]) ED ROS GENERAL - Review of Systems Review Of Systems: See Below Constitutional: Reports: No Symptoms HEENT: Reports: No Symptoms Respiratory: Reports: No Symptoms Cardiovascular: Reports: No Symptoms Endocrine: Reports: No Symptoms GI/Abdominal: Reports: No Symptoms : Reports: No Symptoms Musculoskeletal: Reports: Neck Pain Skin: Reports: No Symptoms Neurological: Reports: Headache ED EXAM, UPPER BACK/NECK PAIN - Physical Exam Exam: See Below Exam Limited By: No Limitations General Appearance: Alert, No Apparent Distress Eye Exam: Bilateral Eye: EOMI, PERRL Ears Exam: Normal External Exam Nose Exam: Normal Inspection Head Exam: Atraumatic, Normocephalic Neck Exam: Tender Lateral (Right side) Cardiovascular/Respiratory: Regular Rate, Rhythm, No M/R/G, Normal Breath Sounds , No Respiratory Distress GI/Abdominal: Soft, Non-Tender, No Organomegaly, No Mass Back Exam: Normal Inspection Course - Vital Signs Last Recorded V/S: Last Vital Signs Temp 98.4 F 11/05/17 08:53 Pulse 104 H 11/05/17 08:53 Resp 16 11/05/17 08:53 BP 162/100 H 11/05/17 08:53 Pulse Ox 100 11/05/17 08:53 - Orders/Labs/Meds Orders: Active Orders 24 hr Category Date Time Status Peripheral IV Care [RC] . DIRECTED Care 11/05/17 09:28 Active Ang Head [CT] Stat Exams 11/05/17 10:35 Stop Req Sodium Chloride 0.9% [Saline Flush] Med 11/05/17 09:28 Active 10 ml FLUSH ASDIRECTED PRN Peripheral IV Insertion Adult [OM.PC] Routine Oth 11/05/17 09:28 Ordered Medication Orders Sodium Chloride (Saline Flush) 10 ml FLUSH ASDIRECTED PRN PRN Reason: Keep Vein Open Last Admin: 11/05/17 09:35 Dose: 10 ml Meds: Medications Generic Name Dose Route Start Last Admin Trade Name Frejazmyn PRN Reason Stop Dose Admin Sodium Chloride 10 ml 11/05/17 09:28 11/05/17 09:35 Saline Flush FLUSH 10 ml ASDIRECTED PRN Administration Keep Vein Open Discontinued Medications Generic Name Dose Route Start Last Admin Trade Name Gabbi PRN Reason Stop Dose Admin Diphenhydramine HCl 50 mg 11/05/17 09:28 11/05/17 09:35 Benadryl IVPUSH 11/05/17 09:29 50 mg ONETIME ONE Administration Ketorolac Tromethamine 30 mg 11/05/17 10:21 11/05/17 10:32 Toradol IVPUSH 11/05/17 10:22 30 mg ONETIME ONE Administration Prochlorperazine Edisylate 10 mg 11/05/17 09:28 11/05/17 09:34 Compazine IVPUSH 11/05/17 09:29 10 mg ONETIME ONE Administration - Re-Assessments/Exams Free Text/Narrative Re-Assessment/Exam: 11/05/17 12:18 I ordered an IV saline lock, compazine 10mg IV and benadryl 50mg IV. Her head CT was negative so I ordered toradol 30mg IV. I am worried about an aneurysm so I got an MRI of her brain and it was negative. She feels better and she is sleeping. She has a tension headache. I will discharge her home. Departure - Departure Time of Disposition: 12:20 Disposition: Home, Self-Care 01 Condition: Good Clinical Impression: Tension headache - Discharge Information Prescriptions: Hydrocodone/Acetaminophen [Hydrocodon-Acetaminophen 5-325] 1 - 2 each PO Q6HR PRN #10 tablet PRN Reason: Pain Cyclobenzaprine [Flexeril] 10 mg PO TID PRN #20 tablet PRN Reason: Pain Referrals: Marlen Larkin, DIRECTOR MANUFACTURING ENGINEERING [Primary Care Provider] - Additional Instructions: Take the medication as prescribed. Get some rest today. Please return if you are worse. - My Orders Last 24 Hours: My Active Orders 11/05/17 09:28 Peripheral IV Care [RC] . DIRECTED Sodium Chloride 0.9% [Saline Flush] 10 ml FLUSH ASDIRECTED PRN Peripheral IV Insertion Adult [OM.PC] Routine 11/05/17 10:35 Ang Head [CT] Stat - Assessment/Plan Last 24 Hours: My Active Orders 11/05/17 09:28 Peripheral IV Care [RC] . DIRECTED Sodium Chloride 0.9% [Saline Flush] 10 ml FLUSH ASDIRECTED PRN Peripheral IV Insertion Adult [OM.PC] Routine 11/05/17 10:35 Ang Head [CT] Stat
== END 2017-11-05 12:30 | disposition home or self-care (01) ==
LOC: JD.ED 08:47
DX: G44.209 Tension-type headache, unspecified, not intractable (principal); F17.210 Nicotine dependence, cigarettes, uncomplicated; Z88.5 Allergy status to narcotic agent; Z91.040 Latex allergy status
CPT/HCPCS: 70450; 70544; 96374; 96375; 99284; J0780; J1200; J1885; J7050

== ENCOUNTER 2018-02-15 16:22 | Emergency (ER) | payer BC ==
[2018-02-15 16:36] VITALS: BP 155/103
--- NOTE | 2018-02-15 16:59 | EDM.PDOC ---
ED HPI GENERAL MEDICAL PROBLEM - General Chief Complaint: Upper Extremity Injury/Pain Stated Complaint: LEFT WRIST INJURY Time Seen by Provider: 02/15/18 16:50 Source of Information: Reports: Patient History Limitations: Reports: No Limitations - History of Present Illness INITIAL COMMENTS - FREE TEXT/NARRATIVE: Patient is a 29-year-old female presents ED complaining of left wrist pain. Patient states last night she accidentally slipped on the ice injuring her left wrist. Since then the pain has grown increasingly worse unable to move it without worsening pain. Most the pain is along the anatomical snuffbox. No previous history of navicular fracture. No pain to the hand, fingers, elbow, upper arm, shoulder, or clavicle. She denies hitting her head nor injuring her neck or back. Left Wrist Pain Score (Numeric/FACES): 6 - Related Data Allergies Allergy/AdvReac Type Severity Reaction Status Date / Time codeine Allergy Intermediate Burning Verified 11/05/17 09:06 latex Allergy Intermediate Blisters Verified 11/05/17 09:06 Home Meds: Home Meds Amitriptyline [Elavil] 50 mg PO BEDTIME PRN 08/08/16 [History] Ibuprofen [Advil] 600 mg PO Q6H PRN 10/09/16 [History] LORazepam 0.5 mg PO ASDIRECTED PRN 01/24/17 [History] Cyclobenzaprine [Flexeril] 10 mg PO TID PRN #20 tablet 11/05/17 [Rx] Past Medical History HEENT History: Reports: Impaired Vision Other HEENT History: wears eyeglasses Musculoskeletal History: Reports: Back Pain, Chronic Neurological History: Reports: Headaches, Chronic Psychiatric History: Reports: Anxiety, Depression Hematologic History: Reports: Anemia - Past Surgical History HEENT Surgical History: Reports: Oral Surgery Social & Family History - Family History Family Medical History: Noncontributory - Tobacco Use Smoking Status *Q: Current Every Day Smoker Years of Tobacco use: 21 Packs/Tins Daily: 0.5 Used Tobacco, but Quit: No Second Hand Smoke Exposure: No - Caffeine Use Caffeine Use: Reports: Coffee, Energy Drinks - Alcohol Use Days Per Week of Alcohol Use: 5 Number of Drinks Per Day: 2 Total Drinks Per Week: 10 - Recreational Drug Use Recreational Drug Use: No - Living Situation & Occupation Living situation: Reports: Single, with Significant Other (Boyfriend), with Family (Daughter) Occupation: Employed ([employer]) Review of Systems - Review of Systems Review Of Systems: ROS reveals no pertinent complaints other than HPI. ED EXAM, GENERAL - Physical Exam Exam: See Below Exam Limited By: No Limitations General Appearance: Alert, WD/WN, No Apparent Distress Ears: Hearing Grossly Normal Nose: Normal Inspection Throat/Mouth: Normal Voice, No Airway Compromise Neck: Normal Inspection, Supple Respiratory/Chest: No Respiratory Distress, Lungs Clear, Normal Breath Sounds, No Accessory Muscle Use Cardiovascular: Normal Peripheral Pulses, Regular Rate, Rhythm, No Murmur Extremities: Other (Patient has pain along the anatomical snuffbox with palpation. Decreased range of motion secondary to pain. No acute bony abnormalities noted. No pain with palpation of the fingers, hand, elbow, upper arm, or shoulder.) Neurological: Alert, Oriented, CN II-XII Intact, Normal Cognition, No Motor/ Sensory Deficits Psychiatric: Normal Affect, Normal Mood Skin Exam: Warm, Dry, Intact, Normal Color, No Rash ED TRAUMA EXTREMITY PROCEDURES - Splinting Left Upper Extremity Pre-Procedure NV Status: Normal Post-Procedure NV Status: Normal Splint Material: Fiberglass Splint Design: Thumb Spica, Posterior Applied & Form Fitted By: Provider, Nurse Provider Post-Splint Application NV Check: NV Status Normal, Good Position Complications: No Course - Vital Signs Last Recorded V/S: Last Vital Signs Temp 98.0 F 02/15/18 16:35 Pulse 85 02/15/18 16:35 Resp 20 02/15/18 16:35 BP 155/103 H 02/15/18 16:35 Pulse Ox 97 02/15/18 16:35 - Orders/Labs/Meds Orders: Active Orders 24 hr Category Date Time Status Wrist Comp Min 3V Lt [CR] Stat Exams 02/15/18 16:56 Taken - Re-Assessments/Exams Free Text/Narrative Re-Assessment/Exam: Ordered x-ray of the left wrist. X-ray of the left wrist did not reveal any acute bony abnormalities. Although there is no obvious fracture patient has pain over the anatomical snuffbox and along the distal third of the ulnar. Concerned for navicular fracture. Thumb spica splint/posterior will be applied. Splint applied with no complications. Discharge instructions as documented. Departure - Departure Time of Disposition: 17:48 Disposition: Home, Self-Care 01 Condition: Good Clinical Impression: Left wrist sprain Qualifiers: Encounter type: initial encounter Qualified Code(s): S63.502A - Unspecified sprain of left wrist, initial encounter - Discharge Information Instructions: Wrist Sprain, Adult, Cast or Splint Care, Adult, [id number] Referrals: Marlen Larkin, MEDICAL STAFF COORDINATOR [Primary Care Provider] - Forms: ED Department Discharge Additional Instructions: Elevate when able to reduce any swelling and pain. Apply ice to affected area 4 times daily, 30 minutes in duration, do not apply directly on the skin. She splint dry. Utilize Tylenol and ibuprofen in alternating fashion for pain. Follow-up with orthopedic surgeon in 10 days for reevaluation. Return to the ED for any new or worsening symptoms. - My Orders Last 24 Hours: My Active Orders 02/15/18 16:56 Wrist Comp Min 3V Lt [CR] Stat - Assessment/Plan Last 24 Hours: My Active Orders 02/15/18 16:56 Wrist Comp Min 3V Lt [CR] Stat
--- NOTE | 2018-02-16 09:12 | CR ---
Left wrist: Four views of the left wrist were obtained. Comparison: No prior study. Joint spaces are preserved. No fracture, dislocation or other bony abnormality is seen. Impression: 1. No abnormality is identified on left wrist exam. Diagnostic code #1
== END 2018-02-15 18:03 | disposition home or self-care (01) ==
LOC: JD.ED 16:22
DX: S63.502A Unspecified sprain of left wrist, initial encounter (principal); F32.9 Major depressive disorder, single episode, unspecified; F41.9 Anxiety disorder, unspecified; F17.210 Nicotine dependence, cigarettes, uncomplicated; W00.0XXA Fall on same level due to ice and snow, initial encounter; Z88.5 Allergy status to narcotic agent; Z91.040 Latex allergy status; Z79.899 Other long term (current) drug therapy
CPT/HCPCS: 29125; 29130; 73110-26-LT; 73110-LT; 99282-25; 99283-25

== ENCOUNTER 2018-03-22 05:52 | Emergency (ER) | payer BC ==
[2018-03-22 06:05] VITALS: BP 134/110
[2018-03-22] MEDS ORDERED: Ondansetron 4 MG/2 ML SDV IVPUSH ONE (06:13)
[2018-03-22] MEDS ORDERED: diphenhydrAMINE 50 MG/ML SDV IVPUSH ONE (06:14)
[2018-03-22] MEDS ORDERED: LORazepam 2 MG/ML SDV IVPUSH ONE (06:14)
[2018-03-22] MEDS ORDERED: Sodium Chloride 0.9% 1,000 ML IV SCH (06:15)
[2018-03-22] MEDS ORDERED: Ketorolac 30 MG/ML SDV IVPUSH ONE (06:15)
--- NOTE | 2018-03-22 06:19 | EDM.PDOC ---
<Anibal,Kieran Buddy - Last Filed: 03/22/18 07:01> ED HPI GENERAL MEDICAL PROBLEM - General Chief Complaint: Headache Stated Complaint: VOMMITTING Time Seen by Provider: 03/22/18 05:54 Source of Information: Reports: Patient History Limitations: Reports: No Limitations - History of Present Illness INITIAL COMMENTS - FREE TEXT/NARRATIVE: This is a 37-year-old female. She was drinking some alcohol last night states she finished early. But she woke early this morning with a severe headache and nausea and vomiting. She also complains of some dizziness. She has a history of migraines in the past. It is the typical pounding sharp type migraine with pain behind her eyes and photophobia but no phonophobia. She took some ibuprofen at home but it didn't seem to help at all. She comes to the ER for evaluation. She denies any recent illnesses no colds no cough no fever no chills no diarrhea. Posterior Headache Pain Score (Numeric/FACES): 9 - Related Data Allergies Allergy/AdvReac Type Severity Reaction Status Date / Time codeine Allergy Intermediate Burning Verified 03/22/18 06:07 latex Allergy Intermediate Blisters Verified 03/22/18 06:07 haloperidol [From Haldol] AdvReac Nervousness Verified 03/22/18 06:07 Home Meds: Home Meds Amitriptyline [Elavil] 50 mg PO BEDTIME PRN 08/08/16 [History] Ibuprofen [Advil] 600 mg PO Q6H PRN 10/09/16 [History] LORazepam 0.5 mg PO ASDIRECTED PRN 01/24/17 [History] Cyclobenzaprine [Flexeril] 10 mg PO TID PRN #20 tablet 11/05/17 [Rx] traMADol [Ultram] 50 mg PO Q6H PRN 03/22/18 [History] Past Medical History HEENT History: Reports: Impaired Vision Other HEENT History: wears eyeglasses Musculoskeletal History: Reports: Back Pain, Chronic Neurological History: Reports: Headaches, Chronic Psychiatric History: Reports: Anxiety, Depression Hematologic History: Reports: Anemia - Past Surgical History HEENT Surgical History: Reports: Oral Surgery Social & Family History - Family History Family Medical History: Noncontributory - Tobacco Use Smoking Status *Q: Current Every Day Smoker Years of Tobacco use: 20 Packs/Tins Daily: 0.5 Used Tobacco, but Quit: No Second Hand Smoke Exposure: No - Caffeine Use Caffeine Use: Reports: Coffee - Alcohol Use Days Per Week of Alcohol Use: 5 Number of Drinks Per Day: 2 Total Drinks Per Week: 10 - Recreational Drug Use Recreational Drug Use: No - Living Situation & Occupation Living situation: Reports: Single, with Significant Other (Boyfriend), with Family (Daughter) Occupation: Employed ([employer]) ED ROS GENERAL - Review of Systems Review Of Systems: See Below Constitutional: Denies: Fever, Chills HEENT: Reports: Other (Photophobia) Respiratory: Denies: Shortness of Breath, Cough Cardiovascular: Denies: Chest Pain Endocrine: Reports: No Symptoms GI/Abdominal: Reports: Nausea, Vomiting. Denies: Abdominal Pain, Diarrhea : Reports: No Symptoms Musculoskeletal: Reports: No Symptoms Skin: Reports: No Symptoms Neurological: Reports: Dizziness, Headache Psychiatric: Reports: No Symptoms Hematologic/Lymphatic: Reports: No Symptoms - Physical Exam Exam: See Below Exam Limited By: No Limitations General Appearance: Alert, WD/WN, Mild Distress Eye Exam: Bilateral Eye: Normal Inspection, Other (Pupils are equal and reactive ) Ears: Normal External Exam, Normal Canal, Normal TMs Nose: Normal Inspection Throat/Mouth: Normal Inspection, Normal Lips, Normal Oropharynx, Normal Voice, No Airway Compromise Head Exam: Normocephalic Neck: Supple Respiratory/Chest: No Respiratory Distress, Lungs Clear, Normal Breath Sounds Cardiovascular: Regular Rate, Rhythm, No Murmur GI/Abdominal: Soft Neuro Exam (Abbreviated): Alert, Oriented Back Exam: Full Range of Motion Extremities: Normal Inspection, Normal Range of Motion Psychiatric: Normal Affect, Normal Mood Skin Exam: Warm, Dry Course - Vital Signs Last Recorded V/S: Last Vital Signs Temp 96.7 F 03/22/18 06:04 Pulse 86 03/22/18 06:04 Resp 16 03/22/18 06:04 BP 134/110 H 03/22/18 06:04 Pulse Ox 92 L 03/22/18 06:04 - Orders/Labs/Meds Orders: Active Orders 24 hr Category Date Time Status Sodium Chloride 0.9% [Normal Saline] 1,000 ml Med 03/22/18 06:15 Active IV ASDIRECTED Medication Orders Sodium Chloride (Normal Saline) 1,000 mls @ 1,000 mls/hr IV ASDIRECTED DUGLAS Last Admin: 03/22/18 06:27 Dose: 1,000 mls/hr Meds: Medications Generic Name Dose Route Start Last Admin Trade Name Frejazmyn PRN Reason Stop Dose Admin Sodium Chloride 1,000 mls @ 1,000 mls/hr 03/22/18 06:15 03/22/18 06:27 Normal Saline IV 1,000 mls/hr ASDIRECTED DUGLAS Administration Discontinued Medications Generic Name Dose Route Start Last Admin Trade Name Gabbi PRN Reason Stop Dose Admin Diphenhydramine HCl 25 mg 03/22/18 06:14 03/22/18 06:26 Benadryl IVPUSH 03/22/18 06:15 25 mg ONETIME ONE Administration Ketorolac Tromethamine 30 mg 03/22/18 06:15 03/22/18 06:30 Toradol IVPUSH 03/22/18 06:16 30 mg ONETIME ONE Administration Lorazepam 0.5 mg 03/22/18 06:14 03/22/18 06:28 Ativan IVPUSH 03/22/18 06:15 Not Given ONETIME ONE Ondansetron HCl 4 mg 03/22/18 06:13 03/22/18 06:25 Zofran IVPUSH 03/22/18 06:14 4 mg ONETIME ONE Administration - Re-Assessments/Exams Free Text/Narrative Re-Assessment/Exam: 03/22/18 07:02 I will transfer the patient to Dr. Youssef for care and disposition. Departure - Departure Disposition: Home, Self-Care 01 Clinical Impression: Migraine - Discharge Information Referrals: PCP,None [Primary Care Provider] - Forms: ED Department Discharge Additional Instructions: Go home and rest in a dark quiet room. Please return if you are worse. <Kieran Youssef - Last Filed: 03/22/18 08:02> Course - Re-Assessments/Exams Free Text/Narrative Re-Assessment/Exam: 03/22/18 08:[address] Barnett. The patient is doing good. She has been sleeping since she got the medicine. I will discharge her home. Departure - Departure Time of Disposition: 08:05 Condition: Good
== END 2018-03-22 08:15 | disposition home or self-care (01) ==
LOC: JD.ED 05:52
DX: G43.909 Migraine, unspecified, not intractable, without status migrainosus (principal); F17.210 Nicotine dependence, cigarettes, uncomplicated; Z88.5 Allergy status to narcotic agent; Z91.040 Latex allergy status; Z79.899 Other long term (current) drug therapy
CPT/HCPCS: 96361; 96374; 96375; 99284; J1200; J1885; J2405; J7040; J2060

== ENCOUNTER 2020-06-16 05:10 | Emergency (ER) | payer BC, OTHER ==
[2020-06-16 05:29] VITALS: BP 159/98; PULSE 68
[2020-06-16] MEDS ORDERED: Sodium Chloride 0.9% 1,000 ML IV ONE (05:46)
[2020-06-16] MEDS ORDERED: Prochlorperazine 10 MG/2 ML SDV IVPUSH ONE (05:46)
[2020-06-16] MEDS ORDERED: Sodium Chloride 0.9% 10 ML Syringe FLUSH PRN (05:46)
[2020-06-16] MEDS ORDERED: diphenhydrAMINE 50 MG/ML SDV IVPUSH ONE (05:47)
[2020-06-16] MEDS ORDERED: Ketorolac 30 MG/ML SDV IVPUSH ONE (05:47)
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
[2020-06-16] MEDS ORDERED: HYDROmorphone 1 MG/ML Syringe IVPUSH ONE (06:48)
== END 2020-06-16 07:27 | disposition home or self-care (01) ==
LOC: JD.ED 05:10
DX: R51 Headache (principal); R11.2 Nausea with vomiting, unspecified; F41.9 Anxiety disorder, unspecified; F32.9 Major depressive disorder, single episode, unspecified; F17.210 Nicotine dependence, cigarettes, uncomplicated; Z88.5 Allergy status to narcotic agent; Z91.040 Latex allergy status; Z88.8 Allergy status to other drugs, medicaments and biological substances; Z79.899 Other long term (current) drug therapy
CPT/HCPCS: 96361; 96374; 96375; 99284; J0780; J1170; J1200; J1885; J7030; 99283

== ENCOUNTER 2020-09-03 09:10 | Emergency (ER) | payer SELFPAY ==
[2020-09-03 10:18] VITALS: BP 152/89; PULSE 79
[2020-09-03] MEDS ORDERED: Ketorolac 30 MG/ML SDV IVPUSH ONE (11:08)
[2020-09-03] MEDS ORDERED: Sodium Chloride 0.9% 10 ML Syringe FLUSH PRN (11:08)
[2020-09-03] MEDS ORDERED: diphenhydrAMINE 50 MG/ML SDV IVPUSH ONE (11:08)
[2020-09-03] MEDS ORDERED: Sodium Chloride 0.9% 1,000 ML IV ONE (11:08)
[2020-09-03] MEDS ORDERED: Promethazine 25 MG in Sodium Chloride 0.9% 50 ML IV ONE (11:09)
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
== END 2020-09-03 13:58 | disposition home or self-care (01) ==
LOC: JD.ED 09:10
DX: R51.9 Headache, unspecified (principal); R11.2 Nausea with vomiting, unspecified; F32.9 Major depressive disorder, single episode, unspecified; F17.210 Nicotine dependence, cigarettes, uncomplicated; F41.9 Anxiety disorder, unspecified; Z88.5 Allergy status to narcotic agent; Z91.040 Latex allergy status; Z88.8 Allergy status to other drugs, medicaments and biological substances; Z79.899 Other long term (current) drug therapy
CPT/HCPCS: 96365; 96375; 99283; J1200; J1885; J7030; 99284; J2550; J7050

== ENCOUNTER 2021-04-24 17:28 | Emergency (ER) | payer MEDICAID ==
[2021-04-24 17:45] VITALS: BP 160/78
[2021-04-24] MEDS ORDERED: Sodium Chloride 0.9% 10 ML SDV IARTIC ONE (18:58)
[2021-04-24] MEDS ORDERED: Iopamidol 755 Mg/ML 100 ML Bottle IVPUSH ONE (18:58)
[2021-04-24] MEDS ORDERED: Sodium Chloride 0.9% 45 ML IV SCH (19:00)
--- NOTE | 2021-04-24 19:21 | CR ---
Chest: 2 views of the chest were obtained. Comparison: Prior chest x-ray of 01/17/16. Heart size and mediastinum are normal. Lungs are clear with no acute parenchymal change. Bony structures appear within normal limits for the patient's age. Surgical clips are seen from prior cholecystectomy. Impression: 1. Nothing acute is seen on 2 view chest x-ray. Diagnostic code #2
[2021-04-24] MEDS ORDERED: Sodium Chloride 0.9% 10 ML Syringe FLUSH PRN (19:33)
--- NOTE | 2021-04-24 19:48 | CT ---
CT chest Technique: Multiple axial sections were obtained through the chest. Intravenous contrast was utilized. Study has been performed as a pulmonary angiogram protocol. Comparison: No prior chest CT is available, prior chest x-ray performed earlier on the same date is available. Findings: Thoracic aorta shows no aneurysm. Pulmonary arteries are well opacified and show no filling defects of pulmonary embolism. No pericardial thickening is seen. Prior cholecystectomy is noted. Visualized portions of the upper abdominal structures show no discrete abnormality. Lungs are clear with no acute parenchymal change. No pleural effusions are seen. No pneumothorax is identified. Bone window settings were reviewed which show no acute osseous abnormality. Impression: 1. No findings of pulmonary embolism. 2. Nothing acute is appreciated on CT study of the chest. Diagnostic code #1
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
[2021-04-24 21:18] VITALS: PULSE 87
== END 2021-04-24 21:15 | disposition home or self-care (01) ==
LOC: JD.ED 17:28
DX: F41.9 Anxiety disorder, unspecified (principal); Z87.891 Personal history of nicotine dependence; Z91.040 Latex allergy status; Z88.5 Allergy status to narcotic agent; Z91.041 Radiographic dye allergy status
CPT/HCPCS: 36415; 71046; 71275; 80053; 83735; 84484; 85025; 85379; 93005; 99285; Q9967; 93010; 99284

== ENCOUNTER 2022-08-01 09:04 | Emergency (ER) | payer MEDICAID ==
[2022-08-01 09:34] VITALS: BP 161/95; PULSE 79
[2022-08-01] MEDS ORDERED: diphenhydrAMINE 50 MG/ML SDV IVPUSH ONE (11:31)
[2022-08-01] MEDS ORDERED: Metoclopramide 10 MG/2 ML SDV IVPUSH ONE (11:31)
[2022-08-01] MEDS ORDERED: Sodium Chloride 0.9% 1,000 ML IV ONE (11:31)
[2022-08-01] MEDS ORDERED: Sodium Chloride 0.9% 10 ML Syringe FLUSH PRN (11:31)
[2022-08-01] MEDS ORDERED: Ketorolac 30 MG/ML SDV IVPUSH ONE (11:31)
[2022-08-01] MEDS ORDERED: HYDROmorphone 0.5 MG/0.5 ML Syringe IVPUSH ONE (12:29)
== END 2022-08-01 13:37 | disposition home or self-care (01) ==
LOC: JD.ED 09:04
DX: G43.809 Other migraine, not intractable, without status migrainosus (principal); F17.210 Nicotine dependence, cigarettes, uncomplicated; F41.9 Anxiety disorder, unspecified; F32.A Depression, unspecified; Z79.899 Other long term (current) drug therapy; Z91.040 Latex allergy status; Z88.8 Allergy status to other drugs, medicaments and biological substances; Z88.5 Allergy status to narcotic agent; Z91.041 Radiographic dye allergy status
CPT/HCPCS: 36415; 80053; 83735; 85025; 86140; 96361; 96374; 96375; 99284; J1170; J1200; J2765; J3490; J7030

== ENCOUNTER 2022-08-02 20:10 | Emergency (ER) | payer MEDICAID ==
[2022-08-02 20:32] VITALS: BP 187/107; PULSE 94
== END 2022-08-02 22:33 | disposition home or self-care (01) ==
LOC: JD.ED 20:10
DX: L76.34 Postprocedural seroma of skin and subcutaneous tissue following other procedure (principal); F17.210 Nicotine dependence, cigarettes, uncomplicated; F41.9 Anxiety disorder, unspecified; F32.A Depression, unspecified; D64.9 Anemia, unspecified; Z79.899 Other long term (current) drug therapy; Z91.040 Latex allergy status; Z88.5 Allergy status to narcotic agent; Z88.8 Allergy status to other drugs, medicaments and biological substances; Z91.041 Radiographic dye allergy status
CPT/HCPCS: 72040; 72040-26; 99283

== ENCOUNTER 2023-04-21 10:10 | Emergency (ER) | payer SELFPAY | END 2023-04-21 10:12 | disposition left against medical advice (07) | LOC: JD.ED 10:10 | DX: Z53.21 Procedure and treatment not carried out due to patient leaving prior to being seen by health care provider (principal) ==

== ENCOUNTER 2023-08-28 00:31 | Emergency (ER) | payer SELFPAY ==
[2023-08-28] MEDS ORDERED: Ondansetron 4 MG/2 ML SDV IVPUSH ONE (01:03)
[2023-08-28] MEDS ORDERED: Morphine 4 MG/ML Syringe IVPUSH ONE (01:03)
[2023-08-28 04:15] VITALS: BP 136/88; PULSE 66
== END 2023-08-28 04:05 | disposition home or self-care (01) ==
LOC: JD.ED 00:31
DX: G43.909 Migraine, unspecified, not intractable, without status migrainosus (principal); F17.210 Nicotine dependence, cigarettes, uncomplicated; Z88.8 Allergy status to other drugs, medicaments and biological substances; Z88.5 Allergy status to narcotic agent; Z91.040 Latex allergy status
CPT/HCPCS: 96374; 96375; 99283; J2270; J2405; 99284

== ENCOUNTER 2024-05-25 21:15 | Emergency (ER) | payer OTHER ==
[2024-05-25 21:28] VITALS: BP 149/96
[2024-05-25] MEDS: Lactated Ringers 1,000 ML IV ONE (21:50)
[2024-05-25] MEDS: Metoclopramide 10 MG/2 ML SDV IVPUSH ONE (21:50)
[2024-05-25] MEDS: Sodium Chloride 0.9% 10 ML Syringe FLUSH PRN (21:52)
[2024-05-25] MEDS: diphenhydrAMINE 50 MG/ML SDV IVPUSH ONE (21:52)
[2024-05-25 21:56] LABS: BASOPHILS PERCENT AUTO 0.2 % (0.0-1.0); EOSINOPHILS ABSOLUTE AUTO 0.1 K/mm3 (0.0-0.4); EOSINOPHILS PERCENT AUTO 0.6 % (0.0-6.0); HEMATOCRIT 44.9 % (37.0-47.0); HEMOGLOBIN 15.3 gm/dl (12.0-16.0); IMMATURE GRAN ABSOLUTE AUTO 0.05 K/mm3 (0.00-0.05); IMMATURE GRAN PERCENT AUTO 0.6 % (0.0-0.4); LYMPHOCYTES ABSOLUTE AUTO 0.5 K/mm3 (1.0-4.8); LYMPHOCYTES PERCENT AUTO 5.4 % (24.0-44.0); MEAN CORPUSCULAR HEMOGLOBIN 29.4 pg (28.0-32.0); MEAN CORPUSCULAR HGB CONC 34.1 g/dl (32.0-36.0); MEAN CORPUSCULAR VOLUME 86.2 fl (83.0-99.0); MEAN PLATELET VOLUME 10.1 fl (9.4-12.3); MONOCYTES ABSOLUTE AUTO 0.4 K/mm3 (0.0-0.8); MONOCYTES PERCENT AUTO 4.3 % (0.0-8.0); NEUTROPHILS ABSOLUTE AUTO 7.6 K/mm3 (1.8-7.7); NEUTROPHILS PERCENT AUTO 88.9 % (41.0-71.0); PLATELET COUNT,PLT 260 K/mm3 (150-400); RED BLOOD CELL COUNT 5.21 M/mm3 (4.10-5.30); WHITE BLOOD CELL COUNT,WBC 8.54 K/mm3 (3.9-11.3)
[2024-05-25 22:21] LABS: ANION GAP 17.1 (5-15); BILIRUBIN TOTAL 0.4 mg/dL (0.2-1.0); BUN/CREATININE RATIO 15.6 (14-18); CREATININE 0.9 mg/dL (0.55-1.02); EST CRCL DRUG DOSING (CG) 71.78 mL/min; POTASSIUM,K 4.1 mEq/L (3.5-5.1)
[2024-05-25 22:23] LABS: LACTIC ACID 1.1 mmol/L (0.4-2.0)
[2024-05-25] MEDS: Iopamidol 612 MG/ML 100 ML Bottle IVPUSH ONE (22:46)
[2024-05-25] MEDS: Prochlorperazine 10 MG/2 ML SDV IVPUSH ONE (23:56)
[2024-05-25] MEDS: Acetaminophen/HYDROcodone 325-10 MG Tab PO ONE (23:56)
[2024-05-26 00:56] VITALS: PULSE 91
== END 2024-05-26 00:56 | disposition home or self-care (01) ==
LOC: JD.ED 21:15
DX: K52.9 Noninfective gastroenteritis and colitis, unspecified (principal); A05.9 Bacterial foodborne intoxication, unspecified; Z86.16 Personal history of COVID-19; Z90.49 Acquired absence of other specified parts of digestive tract; Z79.891 Long term (current) use of opiate analgesic; Z79.899 Other long term (current) drug therapy; Z88.8 Allergy status to other drugs, medicaments and biological substances; Z91.040 Latex allergy status
CPT/HCPCS: 36415; 74177; 80053; 83605; 83690; 85025; 96361; 96374; 96375; 99284; A9270; J0780; J1200; J2765; J3490; J7120; Q9967